=== PATIENT | male | born 1960 | race Caucasian/White ===

== ENCOUNTER 2021-02-09 16:25 | Emergency (ER) | payer OTHER ==
--- NOTE | 2021-02-09 17:29 | EDM.PDOC ---
ED HPI GENERAL MEDICAL PROBLEM - General Chief Complaint: CPR in Progress Stated Complaint: AMBULANCE Time Seen by Provider: 02/09/21 16:28 Source of Information: Reports: EMS, Family (Daughter, Jayde Mckittrick. Son Jaden Miranda.), Old Records, Provider (Dr. Lewis), RN History Limitations: Reports: Other (DOA) - History of Present Illness INITIAL COMMENTS - FREE TEXT/NARRATIVE: Pt arrives to ER with CPR in progress. Unknown down time. Pt found by his daughter Jayde when she stopped by his house to picker packer laundry. Pt was last seen alive by his daughter on Feb.07. Pt was found down, supine next to the sofa, unresponsive, not breathing, and pulseless by the EMS crew. EMS started CPR, IO access placed, and IV in left forearm. EMS reports initial rhythm of fine V-fib, and pt was defibrillated once and converted to asystole. Pt was intubated, and CPR continued. Pt received Epinephrine 1mg IVP x3 doses with no response. Pt arrived to ER cool to the touch, unresponsive to any stimuli, pupils fixed and dilated, pulseless, in asystole, skin with advanced mottling, and early lividity. Resuscitation efforts were deemed futile and terminated by my order. Time of 1631HRS. Escort Car Driver, Dr. Luciana Lewis notified and states body my be cleared for family to view. Family present include daughter Jayde, son Jaden, and a son-in-law. The fam mendez choses to use [facility] in [place]. Onset: Unknown/Unsure - Related Data Allergies Allergy/AdvReac Type Severity Reaction Status Date / Time CT dye Allergy Cannot Uncoded 06/10/13 13:57 Remember Home Meds: Home Meds Lisinopril 5 mg PO DAILY 09/04/13 [History] atorvaSTATin [Lipitor] 20 mg PO BEDTIME 09/04/13 [History] metFORMIN [metFORMIN XR] 1,000 mg PO BIDM 09/04/13 [History] Rosuvastatin [Crestor] 25 mg PO BEDTIME 09/01/15 [History] Varenicline Tartrate [Chantix] 1 mg PO BID 09/01/15 [History] Past Medical History HEENT History: Reports: Cataract, Impaired Vision Cardiovascular History: Reports: High Cholesterol, Hypertension Genitourinary History: Reports: Diabetic Nephropathy Musculoskeletal History: Reports: Other (See Below) Other Musculoskeletal History: Cracked Rt. knee Neurological History: Reports: Migraines Endocrine/Metabolic History: Reports: Diabetes, Type II, Obesity/BMI 30+ - Past Surgical History Male Surgical History: Reports: None Social & Family History - Family History Family Medical History: Unobtainable - Tobacco Use Tobacco Use Status *Q: Current Every Day Tobacco User Tobacco Use Within Last Twelve Months: Cigarettes - Living Situation & Occupation Living situation: Reports: Alone ED ROS GENERAL - Review of Systems Review Of Systems: Unable To Obtain Reason Not Obtained: DOA ED EXAM, CPR - Physical Exam Exam: See Below Limited By: Unresponsive General Appearance: Obese Eye Exam: Bilateral Eye: Other (Fixed and dilated) Nose: No Blood Throat/Mouth: Other (Intubated) Head: Atraumatic, Normocephalic Respiratory Chest: Other (Breath sounds with mechanical ventilation only) Cardiovascular: Pulse with Compression, CPR In Progress GI/Abdominal Exam: Other (Firm obese abdomen) Extremities: Mottled Neurological: Unresponsive Skin Exam: Mottled, Other (Lividity) Departure - Departure Time of Disposition: 16:31 Disposition: 20 Preliminary Cause of *Q: Cardiac Arrest Clinical Impression: Cardiac arrest - Discharge Information *PRESCRIPTION DRUG MONITORING PROGRAM REVIEWED*: No *COPY OF PRESCRIPTION DRUG MONITORING REPORT IN PATIENT DIANNE: No Forms: ED Department Discharge
== END 2021-02-09 17:54 | disposition expired ==
LOC: DL.ED 16:25
DX: I46.9 Cardiac arrest, cause unspecified (principal); E78.00 Pure hypercholesterolemia, unspecified; I10 Essential (primary) hypertension; E11.21 Type 2 diabetes mellitus with diabetic nephropathy; E66.9 Obesity, unspecified; Z72.0 Tobacco use; Z91.041 Radiographic dye allergy status; Z79.84 Long term (current) use of oral hypoglycemic drugs; Z79.899 Other long term (current) drug therapy
CPT/HCPCS: 92950; 99285-25